=== PATIENT | female | born 1995 | race Caucasian/White ===

== ENCOUNTER → 2016-06-05 | Outpatient (CLI) | payer BC | LOC: LAB 13:29 | PROVIDERS: ATTEND Nurse Practitioner Obstetrics & Gynecology | DX: N92.6 Irregular menstruation, unspecified (principal) | CPT/HCPCS: 36415; 84702; 84703 ==

== ENCOUNTER → 2016-06-18 | Outpatient (CLI) | payer BC | LOC: LAB 10:59 | PROVIDERS: ATTEND Nurse Practitioner Obstetrics & Gynecology | DX: N92.6 Irregular menstruation, unspecified (principal) | CPT/HCPCS: 36415; 84144 ==

== ENCOUNTER → 2016-07-11 | Outpatient (CLI) | payer BC | LOC: LAB 12:16 | PROVIDERS: ATTEND Nurse Practitioner Obstetrics & Gynecology | DX: N92.6 Irregular menstruation, unspecified (principal) | CPT/HCPCS: 84144 ==